=== PATIENT | male | born 1940 | race Caucasian/White ===

== ENCOUNTER 2023-02-08 16:45 | Observation (INO) | payer MEDICARE ==
[2023-02-08 17:37] LABS: Basophils # (A) 0.1 k/uL (0-0.2); Basophils % (A) 0 %; Eosinophils # (A) 0.1 k/uL (0-0.7); Eosinophils % (A) 1 %; HCT 41.6 % (39.0-53.0); HGB 14.5 gm/dL (13.0-17.5); Lymphocytes # (A) 1.6 k/uL (1.0-4.8); Lymphocytes % (A) 13 %; MCH 29.4 pg (25.0-35.0); Mean Platelet Volume 8.2; Monocytes % (A) 9 %; Neutrophils # (A) 9.3 k/uL (1.3-7.7); Neutrophils % (A) 76 %; Platelet Count 335 k/uL (150-450); RBC 4.95 m/uL (4.30-5.90); RDW 15.7 % (11.5-15.5); WBC 12.2 k/uL (3.8-10.6)
--- NOTE | 2023-02-08 17:38 | ED ---
Arrhythmia/Palpitations HPI - General Chief Complaint: Arrhythmia/Palpitations Stated Complaint: tachycardia Time Seen by Provider: 02/08/23 16:53 Source: patient, EMS Mode of arrival: EMS - History of Present Illness Initial Comments: 82-year-old male who presents to the emergency department for [place]. He is currently there for rehab and was admitted on the . It was reported that the patient had a presyncopal sensation. Vitals were obtained and the patient had an elevated heart rate of 180. EMS was called and found the patient to be in SVT. Obtain IV access however before medications were pushed, the patient converted on his own. He has no history of this. Recently had full cardiac workup for orthostatic hypotension at [facility]. Denies any previous cardiac history. States that he felt short of breath with tunnel vision however did not have any chest pain or palpitations. No current symptoms at this time. No other alleviating, precipitating or modifying factors - Related Data Home Medications Medication Instructions Recorded Confirmed Albuterol Inhaler [Ventolin Hfa 2 puff INHALATION RT-QID PRN 02/08/23 02/08/23 Inhaler] Ascorbic Acid [Vitamin C] 1,000 mg PO DAILY@119902/08/23 02/08/23 Aspirin EC [Ecotrin Low Dose] 81 mg PO DAILY@79902/08/23 02/08/23 Bromfenac Sodium [Prolensa Ophth 1 drop RIGHT EYE DAILY@79902/08/23 02/08/23 Soln] Cholecalciferol [Vitamin D3 (25 25 mcg PO DAILY@119902/08/23 02/08/23 Mcg = 1000 Iu)] Cyanocobalamin (Vitamin B-12) 1,000 mcg PO DAILY@119902/08/23 02/08/23 [Vitamin B-12] Fluticasone/Umeclidin/Vilanter 1 puff INHALATION RT-DAILY@79902/08/23 02/08/23 [Trelegy Ellipta 200-62.5-25] Ipratropium-Albuterol Nebulize 3 ml INHALATION RT-Q6H PRN 02/08/23 02/08/23 [Duoneb 0.5 mg-3 mg/3 ml Soln] Loteprednol Etabonate [Inveltys] 1 drop LEFT EYE DAILY@0800 02/08/23 02/08/23 Loteprednol Etabonate [Inveltys] 1 drop RIGHT EYE BID@0800,1700 02/08/23 02/08/23 Magnesium Chloride [Mag64] 64 mg PO DAILY@0800 02/08/23 02/08/23 Magnesium Hydroxide [Milk of 7,200 mg PO DAILY PRN 02/08/23 02/08/23 Magnesia Concentrate] Melatonin 3 mg PO HS PRN 02/08/23 02/08/23 Menthol-Zinc Oxide Oint 1 applic TOPICAL TID 02/08/23 02/08/23 [Calmoseptine Ointment] Na Phos,M-B/Na Phos,Di-Ba [Fleet 133 ml RECTAL DAILY PRN 02/08/23 02/08/23 Adult] Nystatin 100,000Unit/gm Cream 1 applic TOPICAL BID PRN 02/08/23 02/08/23 [Mycostatin Cream] Sennosides [Senokot] 17.2 mg PO BID@0800,1700 02/08/23 02/08/23 Torsemide [Demadex] 20 mg PO DAILY@0800 02/08/23 02/08/23 bisacodyL [Dulcolax] 10 mg RECTAL DAILY PRN 02/08/23 02/08/23 carvediloL [Coreg] 6.25 mg PO BID@0800,1700 02/08/23 02/08/23 Allergies Allergy/AdvReac Type Severity Reaction Status Date / Time No Known Allergies Allergy Verified 02/08/23 17:33 Review of Systems ROS Statement: Those systems with pertinent positive or pertinent negative responses have been documented in the HPI. ROS Other: All systems not noted in ROS Statement are negative. Past Medical History Past Medical History: COPD Smoking Status: Former smoker General Exam General appearance: alert, in no apparent distress Head exam: Present: atraumatic, normocephalic, normal inspection Eye exam: Present: normal appearance, PERRL, EOMI. Absent: scleral icterus, conjunctival injection, periorbital swelling ENT exam: Present: normal exam, mucous membranes moist Neck exam: Present: normal inspection. Absent: tenderness, meningismus, lymphadenopathy Respiratory exam: Present: normal lung sounds bilaterally. Absent: respiratory distress, wheezes, rales, rhonchi, stridor Cardiovascular Exam: Present: regular rate, normal rhythm, normal heart sounds. Absent: systolic murmur, diastolic murmur, rubs, gallop, clicks GI/Abdominal exam: Present: soft, normal bowel sounds. Absent: distended, tenderness, guarding, rebound, rigid Extremities exam: Present: normal inspection, full ROM, normal capillary refill. Absent: tenderness, pedal edema, joint swelling, calf tenderness Back exam: Present: normal inspection Neurological exam: Present: alert, oriented X3, CN II-XII intact Psychiatric exam: Present: normal affect, normal mood Skin exam: Present: warm, dry, intact, normal color. Absent: rash Course Vital Signs 02/08/23 02/08/23 16:49 18:02 Temperature 97.7 F 97.5 F L Pulse Rate 103 H 97 Respiratory 18 19 Rate Blood Pressure 125/87 125/87 O2 Sat by Pulse 99 95 Oximetry Medical Decision Making - Medical Decision Making Was pt. sent in by a medical professional or institution (, PA, SILK BRUSHER, urgent care, hospital, or alf...) When possible be specific @ -[facility] Did you speak to anyone other than the patient for history (EMS, parent, family, police, friend...)? What history was obtained from this source @ -EMS Did you review nursing and triage notes (agree or disagree)? Why? @ -I reviewed and agree with nursing and triage notes Were old charts reviewed (outside hosp., previous admission, EMS record, old EKG, old radiological studies, urgent care reports/EKG's, alf records)? Report findings @ -I reviewed the patient's paperwork from his F Differential Diagnosis (chest pain, altered mental status, abdominal pain women, abdominal pain men, vaginal bleeding, weakness, fever, dyspnea, syncope, headache, dizziness, GI bleed, back pain, seizure, CVA, palpatations, mental health, musculoskeletal)? @ -Differential Palpitations Ventricular arrhythmias, atrial arrhythmias, myocardial infarction, anemia, thyrotoxicosis, electrolyte imbalance, hypokalemia, pulmonary embolism, pulmonary disease, drugs, alcohol, anxiety, stress.... This is not meant to be an all-inclusive list. EKG interpreted by me (3pts min.). @ -Yes and demonstrates sinus rhythm with a rate of 104. CA interval 175. QRS 88. QTC of 394. No acute ST segment elevation or depression X-rays interpreted by me (1pt min.). @ -Yes and demonstrates bilateral pulmonary haziness CT interpreted by me (1pt min.). @ -None done U/S interpreted by me (1pt. min.). @ -None done What testing was considered but not performed or refused? (CT, X-rays, U/S, labs)? Why? @ -None What meds were considered but not given or refused? Why? @ -None Did you discuss the management of the patient with other professionals (pro fessionals i.e. , PA, SILK BRUSHER, lab, RT, psych nurse, professor of social work, hyster machine operator, teacher, chief green officer, lining caser)? Give summary @ -Spoke with Lexus from [facility] Was smoking cessation discussed for >3mins.? @ -No Was critical care preformed (if so, how long)? @ -No Were there social determinants of health that impacted care today? How? (Homelessness, low income, unemployed, alcoholism, drug addiction, transportation, low edu. Level, literacy, decrease access to med. care, group home, rehab)? @ -Patient is coming from rehab Was there de-escalation of care discussed even if they declined (Discuss DNR or withdrawal of care, Hospice)? DNR status @ -No What co-morbidities impacted this encounter? (DM, HTN, Smoking, COPD, CAD, Cancer, CVA, ARF, Chemo, Hep., AIDS, mental health diagnosis, sleep apnea, morbid obesity)? @ -Orthostatic hypotension Was patient admitted / discharged? Hospital course, mention meds given and route, prescriptions, significant lab abnormalities, going to OR and other pertinent info. @ -Upon arrival patient was placed into room 6. A thorough history and physical exam was performed. 12-lead EKG was obtained. Patient is tachycardic however is not in SVT. Laboratory studies were conducted and reviewed. Chest x-ray was performed. Recommended admission due to new onset SVT for which the patient was agreeable. Spoke with Lexus from [facility] who agreed to admit the patient Undiagnosed new problem with uncertain prognosis? @ - Yes Drug Therapy requiring intensive monitoring for toxicity (Heparin, Nitro, Insulin, Cardizem)? @ -No Were any procedures done? @ -No Diagnosis/symptom? @ -Acute new onset SVT Acute, or Chronic, or Acute on Chronic? @ -Acute Uncomplicated (without systemic symptoms) or Complicated (systemic symptoms)? @ -Complicated Side effects of treatment? @ -No Exacerbation, Progression, or Severe Exacerbation? @ -No Poses a threat to life or bodily function? How? (Chest pain, USA, MD, pneumonia, PE, COPD, DKA, ARF, appy, cholecystitis, CVA, Diverticulitis, Homicidal, Suicidal, threat to staff... and all critical care pts) @ -No - Lab Data Result diagrams: 02/08/23 17:00 02/08/23 17:00 Lab Results 02/08/23 02/08/23 02/08/23 Range/Units 17:00 17:00 17:00 WBC 12.2 H (3.8-10.6) k/uL RBC 4.95 (4.30-5.90) m/uL Hgb 14.5 (13.0-17.5) gm/dL Hct 41.6 (39.0-53.0) % MCV 84.0 (80.0-100.0) fL MCH 29.4 (25.0-35.0) pg MCHC 35.0 (31.0-37.0) g/dL RDW 15.7 H (11.5-15.5) % Plt Count 335 (150-450) k/uL MPV 8.2 Neutrophils % 76 % Lymphocytes % 13 % Monocytes % 9 % Eosinophils % 1 % Basophils % 0 % Neutrophils # 9.3 H (1.3-7.7) k/uL Lymphocytes # 1.6 (1.0-4.8) k/uL Monocytes # 1.0 (0-1.0) k/uL Eosinophils # 0.1 (0-0.7) k/uL Basophils # 0.1 (0-0.2) k/uL PT 10.8 (9.0-12.0) sec INR 1.0 (<1.2) APTT 23.4 (22.0-30.0) sec Sodium 130 L (137-145) mmol/L Potassium 4.1 (3.5-5.1) mmol/L Chloride 94 L (98-107) mmol/L Carbon Dioxide 25 (22-30) mmol/L Anion Gap 11 mmol/L BUN 37 H (9-20) mg/dL Creatinine 1.59 H (0.66-1.25) mg/dL Est GFR (CKD-EPI)AfAm 47 (>60 ml/min/1.73 sqM) Est GFR (CKD-EPI)NonAf 41 (>60 ml/min/1.73 sqM) Glucose 113 H (74-99) mg/dL Calcium 9.7 (8.4-10.2) mg/dL Magnesium 2.1 (1.6-2.3) mg/dL Total Bilirubin 1.6 H (0.2-1.3) mg/dL AST 59 (17-59) U/L ALT 62 H (4-49) U/L Alkaline Phosphatase 109 (38-126) U/L Troponin I (0.000-0.034) ng/mL Total Protein 6.4 (6.3-8.2) g/dL Albumin 3.4 L (3.5-5.0) g/dL TSH 2.300 (0.465-4.680) mIU/L 02/08/23 Range/Units 17:00 WBC (3.8-10.6) k/uL RBC (4.30-5.90) m/uL Hgb (13.0-17.5) gm/dL Hct (39.0-53.0) % MCV (80.0-100.0) fL MCH (25.0-35.0) pg MCHC (31.0-37.0) g/dL RDW (11.5-15.5) % Plt Count (150-450) k/uL MPV Neutrophils % % Lymphocytes % % Monocytes % % Eosinophils % % Basophils % % Neutrophils # (1.3-7.7) k/uL Lymphocytes # (1.0-4.8) k/uL Monocytes # (0-1.0) k/uL Eosinophils # (0-0.7) k/uL Basophils # (0-0.2) k/uL PT (9.0-12.0) sec INR (<1.2) APTT (22.0-30.0) sec Sodium (137-145) mmol/L Potassium (3.5-5.1) mmol/L Chloride (98-107) mmol/L Carbon Dioxide (22-30) mmol/L Anion Gap mmol/L BUN (9-20) mg/dL Creatinine (0.66-1.25) mg/dL Est GFR (CKD-EPI)AfAm (>60 ml/min/1.73 sqM) Est GFR (CKD-EPI)NonAf (>60 ml/min/1.73 sqM) Glucose (74-99) mg/dL Calcium (8.4-10.2) mg/dL Magnesium (1.6-2.3) mg/dL Total Bilirubin (0.2-1.3) mg/dL AST (17-59) U/L ALT (4-49) U/L Alkaline Phosphatase (38-126) U/L Troponin I <0.012 (0.000-0.034) ng/mL Total Protein (6.3-8.2) g/dL Albumin (3.5-5.0) g/dL TSH (0.465-4.680) mIU/L Disposition Clinical Impression: SVT (supraventricular tachycardia) Disposition: ADMITTED IP TO THIS [facility] Condition: Stable Is patient prescribed a controlled substance at d/c from ED?: No Time of Disposition: 19:16 Decision to Admit Reason: Admit from EC Decision Date: 02/08/23 Decision Time: 19:17
[2023-02-08 17:47] LABS: Partial Thromboplastin Time 23.4 sec (22.0-30.0); Prothrombin Time 10.8 sec (9.0-12.0)
[2023-02-08 17:51] LABS: ALT 62 U/L (4-49); AST 59 U/L (17-59); African American GFR (CKD) 47 (>60 ml/min/1.73 sqM); Albumin 3.4 g/dL (3.5-5.0); Alkaline Phosphatase 109 U/L (38-126); Anion Gap 11 mmol/L; Blood Urea Nitrogen 37 mg/dL (9-20); Calcium 9.7 mg/dL (8.4-10.2); Carbon Dioxide 25 mmol/L (22-30); Chloride 94 mmol/L (98-107); Glucose 113 mg/dL (74-99); Magnesium 2.1 mg/dL (1.6-2.3); Non-African American GFR(CKD) 41 (>60 ml/min/1.73 sqM); Potassium 4.1 mmol/L (3.5-5.1); Sodium 130 mmol/L (137-145); Total Bilirubin 1.6 mg/dL (0.2-1.3); Total Protein 6.4 g/dL (6.3-8.2)
[2023-02-08] MEDS ORDERED: NALOXONE 0.4 MG/ML 1 ML VIAL IV PRN (19:23)
--- NOTE | 2023-02-08 19:34 | XR ---
EXAMINATION: XR chest 2V: 02/08/2023 6:27 PM CLINICAL INDICATION: dysrhythmia TECHNIQUE: Departmental protocol COMPARISON: No prior imaging studies on PACS. FINDINGS: There is ill-defined added homogeneous opacity of the left mid and lower lung zone and right lower porfirio ng zone. These findings are nonspecific and can correlate with a clinical diagnosis of multifocal pne umonia or asymmetric pulmonary edema. The pleural spaces are negative. The cardiac silhouette is not enlarged. The remainder of the mediastinal silhouette is unremarkable. The skeletal structures and soft tissues are negative for acute findings. IMPRESSION: Bilateral pulmonary findings, greater on the left.
[2023-02-09 08:34] LABS: Basophils # (A) 0.1 k/uL (0-0.2); Basophils % (A) 1 %; Eosinophils # (A) 0.1 k/uL (0-0.7); Eosinophils % (A) 1 %; HCT 39.9 % (39.0-53.0); HGB 13.4 gm/dL (13.0-17.5); Lymphocytes # (A) 1.8 k/uL (1.0-4.8); Lymphocytes % (A) 17 %; MCH 29.1 pg (25.0-35.0); MCHC 33.5 g/dL (31.0-37.0); MCV 86.6 fL (80.0-100.0); Monocytes # (A) 0.9 k/uL (0-1.0); Monocytes % (A) 9 %; Neutrophils # (A) 7.5 k/uL (1.3-7.7); Neutrophils % (A) 71 %; Platelet Count 281 k/uL (150-450); RBC 4.61 m/uL (4.30-5.90); RDW 15.9 % (11.5-15.5); WBC 10.7 k/uL (3.8-10.6)
[2023-02-09 09:01] LABS: African American GFR (CKD) 64 (>60 ml/min/1.73 sqM); Anion Gap 8 mmol/L; Blood Urea Nitrogen 37 mg/dL (9-20); Calcium 9.1 mg/dL (8.4-10.2); Carbon Dioxide 25 mmol/L (22-30); Chloride 96 mmol/L (98-107); Glucose 80 mg/dL (74-99); Non-African American GFR(CKD) 55 (>60 ml/min/1.73 sqM); Potassium 4.4 mmol/L (3.5-5.1); Sodium 129 mmol/L (137-145)
[2023-02-09] MEDS: carvediloL 6.25 MG TAB PO SCH ×2 (11:08→17:19)
--- NOTE | 2023-02-09 11:38 | P.CRDCN ---
History of Present Illness History of present illness: HISTORY OF PRESENT ILLNESS: This is a 82-year-old male with a past medical history significant for COPD and hypertension. Patient follows with a media services director out of [facility]. We have been asked to see the patient in consultation for SVT. Patient examined at the bedside in the emergency room. The patient is currently at [facility] for rehab. Apparently the patient had a presyncopal episode. The patient's heart rate was found to be elevated at 180. EMS was called and the patient was found to be in SVT. However the patient converted spontaneously on his own to sinus rhythm. The patient was in sinus mechanism when he arrived to the hospital. However thi s morning, the patient had an episode of SVT. Valsalva maneuver was attempted without success. A second modified Valsalva maneuver was attempted and patient converted to sinus mechanism. The patient is maintaining sinus mechanism at the time of examination. He denies any chest pain or pressure. He currently denies shortness of breath. * EKG reveals SVT. Repeat EKG reveals sinus mechanism with diffuse ST depression. T-wave inversions in lead 3 and V132 * Laboratory data: WBC 10.7. Hemoglobin 13.4. Platelet count 281. Sodium 129. Potassium 4.4. BUN 37. Creatinine 1.24. Troponin negative 3. TSH 2.300. * Current home cardiac medications include carvedilol 6.25 mg twice a day, Lisa dex 20 mg daily, and aspirin 81 mg daily REVIEW OF SYSTEMS: At the time of my exam: CONSTITUTIONAL: Denies fever or chills. HEENT: Denies blurred vision, vision changes, or eye pain. Denies hemoptysis CARDIOVASCULAR: Denies chest pain. Denies orthopnea. Denies PND. Denies palpitations RESPIRATORY: Denies shortness of breath. GASTROINTESTINAL: Denies abdominal pain. Denies nausea or vomiting. HEMATOLOGIC: Denies bleeding disorders. GENITOURINARY: Denies any blood in urine. SKIN: Denies pruitis. Denies rash. PHYSICAL EXAM: VITAL SIGNS: Reviewed. GENERAL: Well-developed in no acute distress. HEENT: Head is normocephalic. Pupils are equal, round. Sclerae anicteric. Mucous membranes of the mouth are moist. Neck supple. No JVD or thyromegaly LUNGS: Respirations even and unlabored. Lungs essentially clear to auscultation bilaterally. HEART: Regular rate and rhythm. S1 and S2 heard. Systolic murmur noted. ABDOMEN: Soft. Nondistended. Nontender. EXTREMITIES: Normal range of motion. No clubbing or cyanosis. Peripheral pulses intact. No lower extremity edema NEUROLOGIC: Awake and alert. Oriented x 3. ASSESSMENT: Presyncope Paroxysmal SVT, with conversion to sinus mechanism with Valsalva maneuvers History of hypertension History of COPD Acute kidney injury, improving PLAN: Obtain 2D echo to assess cardiac structure and function Resume aspirin and Coreg Add verapamil 80 mg twice a day Hold Lasix secondary to EDGARDO on admission Continue telemetry monitoring Further recommendations pending patient course Nurse practitioner note has been reviewed by physician. Signing provider agrees with the documented findings, assessment, and plan of care. Past Medical History Past Medical History: COPD Smoking Status: Former smoker Medications and Allergies Home Medications Medication Instructions Recorded Confirmed Type Albuterol Inhaler [Ventolin Hfa 2 puff INHALATION RT-QID PRN 02/08/23 02/08/23 History Inhaler] Ascorbic Acid [Vitamin C] 1,000 mg PO DAILY@119902/08/23 02/08/23 History Aspirin EC [Ecotrin Low Dose] 81 mg PO DAILY@79902/08/23 02/08/23 History Bromfenac Sodium [Prolensa Ophth 1 drop RIGHT EYE DAILY@79902/08/23 02/08/23 History Soln] Cholecalciferol [Vitamin D3 (25 25 mcg PO DAILY@119902/08/23 02/08/23 History Mcg = 1000 Iu)] Cyanocobalamin (Vitamin B-12) 1,000 mcg PO DAILY@119902/08/23 02/08/23 History [Vitamin B-12] Fluticasone/Umeclidin/Vilanter 1 puff INHALATION RT-DAILY@79902/08/23 02/08/23 History [Trelegy Ellipta 200-62.5-25] Ipratropium-Albuterol Nebulize 3 ml INHALATION RT-Q6H PRN 02/08/23 02/08/23 History [Duoneb 0.5 mg-3 mg/3 ml Soln] Loteprednol Etabonate [Inveltys] 1 drop LEFT EYE DAILY@79902/08/23 02/08/23 History Loteprednol Etabonate [Inveltys] 1 drop RIGHT EYE BID@0800,1700 02/08/23 02/08/23 History Magnesium Chloride [Mag64] 64 mg PO DAILY@0800 02/08/23 02/08/23 History Magnesium Hydroxide [Milk of 7,200 mg PO DAILY PRN 02/08/23 02/08/23 History Magnesia Concentrate] Melatonin 3 mg PO HS PRN 02/08/23 02/08/23 History Menthol-Zinc Oxide Oint 1 applic TOPICAL TID 02/08/23 02/08/23 History [Calmoseptine Ointment] Na Phos,M-B/Na Phos,Di-Ba [Fleet 133 ml RECTAL DAILY PRN 02/08/23 02/08/23 History Adult] Nystatin 100,000Unit/gm Cream 1 applic TOPICAL BID PRN 02/08/23 02/08/23 History [Mycostatin Cream] Sennosides [Senokot] 17.2 mg PO BID@0800,1700 02/08/23 02/08/23 History Torsemide [Demadex] 20 mg PO DAILY@0800 02/08/23 02/08/23 History bisacodyL [Dulcolax] 10 mg RECTAL DAILY PRN 02/08/23 02/08/23 History carvediloL [Coreg] 6.25 mg PO BID@0800,1700 02/08/23 02/08/23 History Allergies Allergy/AdvReac Type Severity Reaction Status Date / Time No Known Allergies Allergy Verified 02/08/23 17:33 Physical Exam Vitals: Vital Signs Temp Pulse Resp BP Pulse Ox 02/09/23 11:05 97.2 F L 82 16 141/71 98 02/09/23 08:45 97 F L 65 16 128/76 94 L 02/09/23 03:54 58 L 20 148/69 97 02/09/23 00:39 72 16 105/53 98 02/08/23 23:18 71 22 122/69 95 02/08/23 21:09 66 22 125/87 96 02/08/23 18:02 97.5 F L 97 19 125/87 95 02/08/23 16:49 97.7 F 103 H 18 125/87 99 Intake and Output 07/02/09/23 02/09/23 22:59 06:59 14:59 Other: Weight 90 kg Results 02/09/23 08:01 02/09/23 08:01 Cardiac Enzymes 02/08/23 02/08/23 02/08/23 Range/Units 17:00 17:00 20:53 AST 59 (17-59) U/L Troponin I <0.012 0.013 (0.000-0.034) ng/mL 02/09/23 Range/Units 00:00 AST (17-59) U/L Troponin I 0.018 (0.000-0.034) ng/mL Coagulation 02/08/23 Range/Units 17:00 PT 10.8 (9.0-12.0) sec APTT 23.4 (22.0-30.0) sec CBC 02/08/23 02/09/23 Range/Units 17:00 08:01 WBC 12.2 H 10.7 H (3.8-10.6) k/uL RBC 4.95 4.61 (4.30-5.90) m/uL Hgb 14.5 13.4 (13.0-17.5) gm/dL Hct 41.6 39.9 (39.0-53.0) % Plt Count 335 281 (150-450) k/uL Comprehensive Metabolic Panel 02/08/23 02/09/23 Range/Units 17:00 08:01 Sodium 130 L 129 L (137-145) mmol/L Potassium 4.1 4.4 (3.5-5.1) mmol/L Chloride 94 L 96 L (98-107) mmol/L Carbon Dioxide 25 25 (22-30) mmol/L BUN 37 H 37 H (9-20) mg/dL Creatinine 1.59 H 1.24 (0.66-1.25) mg/dL Glucose 113 H 80 (74-99) mg/dL Calcium 9.7 9.1 (8.4-10.2) mg/dL AST 59 (17-59) U/L ALT 62 H (4-49) U/L Alkaline Phosphatase 109 (38-126) U/L Total Protein 6.4 (6.3-8.2) g/dL Albumin 3.4 L (3.5-5.0) g/dL Current Medications Generic Name Dose Route Start Last Admin Trade Name Rajivq PRN Reason Stop Dose Admin Carvedilol 6.25 mg 02/09/23 10:31 02/09/23 11:08 Carvedilol 6.25 Mg Tab PO 6.25 mg BID@0800,1700 NEELA Administration Naloxone HCl 0.2 mg 02/08/23 19:23 Naloxone 0.4 Mg/Ml 1 Ml Vial IV Q2M PRN Opioid Reversal Intake and Output 02/08/23 02/09/23 02/09/23 22:59 06:59 14:59 Other: Weight 90 kg 02/09/23 08:01 02/09/23 08:01
[2023-02-09] MEDS ORDERED: ALBUTEROL NEBULIZED 2.5 MG/3 ML INHALATION PRN (12:42)
[2023-02-09] MEDS ORDERED: NYSTATIN 100,000UNIT/GM CREAM 30 GM TUBE TOPICAL PRN (12:42)
[2023-02-09] MEDS ORDERED: bisacodyL 10 MG SUPP RECTAL PRN (12:42)
[2023-02-09] MEDS ORDERED: MAGNESIUM HYDROXIDE 2,400 MG/30 ML CUP PO PRN (12:42)
[2023-02-09] MEDS ORDERED: MELATONIN 3 MG TABLET PO PRN (12:42)
--- NOTE | 2023-02-09 12:47 | P.HPIM ---
History of Present Illness 82-year-old male is admitted the for episodes of SVT initially resolve spontaneously subsequently started again which resolved again spontaneously. Patient is presently on verapamil oral and metoprolol. Patient is clinically dehydrated as well as his serum sodium is low at 129 creatinine is 1.59 on admission improved to 1.24 baseline creatinine is not available at this time. Echocardiogram is not available either patient is on torsemide as outpatient. Patient is presently sinus rhythm patient does have leukocytosis without any evidence of infection. Patient is a retirement resident unable to obtain much of the history REVIEW OF SYSTEMS: CONSTITUTIONAL: No fever, no malaise, no fatigue. HEENT: No recent visual problems or hearing problems. Denied any sore throat. CARDIOVASCULAR: No chest pain, orthopnea, PND, no palpitations, no syncope. PULMONARY: No shortness of breath, no cough, no hemoptysis. GASTROINTESTINAL: No diarrhea, no nausea, no vomiting, no abdominal pain. NEUROLOGICAL: No headaches, no weakness, no numbness. HEMATOLOGICAL: Denies any bleeding or petechiae. GENITOURINARY: Denies any burning micturition, frequency, or urgency. MUSCULOSKELETAL/RHEUMATOLOGICAL: Denies any joint pain, swelling, or any muscle pain. ENDOCRINE: Denies any polyuria or polydipsia. The rest of the 14-point review of systems is negative. PHYSICAL EXAMINATION: GENERAL: The patient is alert and oriented x3, not in any acute distress. Well developed, well nourished. HEENT: Pupils are round and equally reacting to light. EOMI. No scleral icterus. No conjunctival pallor. Normocephalic, atraumatic. No pharyngeal erythema. No thyromegaly. CARDIOVASCULAR: S1 and S2 present. No murmurs, rubs, or gallops. PULMONARY: Chest is clear to auscultation, no wheezing or crackles. ABDOMEN: Soft, nontender, nondistended, normoactive bowel sounds. No palpable organomegaly. MUSCULOSKELETAL: No joint swelling or deformity. EXTREMITIES: No cyanosis, clubbing, or pedal edema. NEUROLOGICAL: Does have significant generalized weakness appears to be bedbound SKIN: Refer to nursing documentation for description of sacral decubitus ulcer Assessment and plan -Presyncope, SVT: Improved with Valsalva. Echocardiogram will be obtained. Patient is Being continued on beta sandy and verapamil was ordered -Hypovolemic hyponatremia secondary to diuretics which will be held the patient was started on gentle hydration patient's rehydration may have precipitated SVT. -History of COPD without any acute exacerbation [place]-acute renal failure secondary to diuretics and intravascular depletion, dehydration. -Hypertension DVT prophylaxis: Subcutaneous heparin Past Medical History Past Medical History: COPD Smoking Status: Former smoker Medications and Allergies Home Medications Medication Instructions Recorded Confirmed Type Albuterol Inhaler [Ventolin Hfa 2 puff INHALATION RT-QID PRN 02/08/23 02/08/23 History Inhaler] Ascorbic Acid [Vitamin C] 1,000 mg PO DAILY@119902/08/23 02/08/23 History Aspirin EC [Ecotrin Low Dose] 81 mg PO DAILY@0802/08/23 02/08/23 History Bromfenac Sodium [Prolensa Ophth 1 drop RIGHT EYE DAILY@79902/08/23 02/08/23 History Soln] Cholecalciferol [Vitamin D3 (25 25 mcg PO DAILY@119902/08/23 02/08/23 History Mcg = 1000 Iu)] Cyanocobalamin (Vitamin B-12) 1,000 mcg PO DAILY@119902/08/23 02/08/23 History [Vitamin B-12] Fluticasone/Umeclidin/Vilanter 1 puff INHALATION RT-DAILY@79902/08/23 02/08/23 History [Trelegy Ellipta 200-62.5-25] Ipratropium-Albuterol Nebulize 3 ml INHALATION RT-Q6H PRN 02/08/23 02/08/23 History [Duoneb 0.5 mg-3 mg/3 ml Soln] Loteprednol Etabonate [Inveltys] 1 drop LEFT EYE DAILY@0802/08/23 02/08/23 History Loteprednol Etabonate [Inveltys] 1 drop RIGHT EYE BID@0800,1700 02/08/23 02/08/23 History Magnesium Chloride [Mag64] 64 mg PO DAILY@0802/08/23 02/08/23 History Magnesium Hydroxide [Milk of 7,200 mg PO DAILY PRN 02/08/23 02/08/23 History Magnesia Concentrate] Melatonin 3 mg PO HS PRN 02/08/23 02/08/23 History Menthol-Zinc Oxide Oint 1 applic TOPICAL TID 02/08/23 02/08/23 History [Calmoseptine Ointment] Na Phos,M-B/Na Phos,Di-Ba [Fleet 133 ml RECTAL DAILY PRN 02/08/23 02/08/23 History Adult] Nystatin 100,000Unit/gm Cream 1 applic TOPICAL BID PRN 02/08/23 02/08/23 History [Mycostatin Cream] Sennosides [Senokot] 17.2 mg PO BID@0800,1700 02/08/23 02/08/23 History Torsemide [Demadex] 20 mg PO DAILY@0800 02/08/23 02/08/23 History bisacodyL [Dulcolax] 10 mg RECTAL DAILY PRN 02/08/23 02/08/23 History carvediloL [Coreg] 6.25 mg PO BID@0800,1700 02/08/23 02/08/23 History Allergies Allergy/AdvReac Type Severity Reaction Status Date / Time No Known Allergies Allergy Verified 02/08/23 17:33 Physical Exam Vitals: Vital Signs Temp Pulse Resp BP Pulse Ox 02/09/23 11:05 97.2 F L 82 16 141/71 98 02/09/23 10:30 81 20 133/87 98 02/09/23 10:00 87 14 135/80 97 02/09/23 09:30 75 15 156/80 98 02/09/23 09:20 80 19 179/93 97 02/09/23 09:15 97 23 123/88 98 02/09/23 09:10 184 H 24 119/84 99 02/09/23 09:05 67 19 144/68 92 L 02/09/23 08:45 97 F L 65 16 128/76 94 L 02/09/23 03:54 58 L 20 148/69 97 02/09/23 00:39 72 16 105/53 98 02/08/23 23:18 71 22 122/69 95 02/08/23 21:09 66 22 125/87 96 02/08/23 18:02 97.5 F L 97 19 125/87 95 02/08/23 16:49 97.7 F 103 H 18 125/87 99 Intake and Output 02/08/23 02/09/23 02/09/23 22:59 06:59 14:59 Other: Weight 90 kg Results CBC & Chem 7: 02/09/23 08:01 02/09/23 08:01 Labs: Abnormal Lab Results - Last 24 Hours (Table) 02/08/23 02/08/23 02/09/23 Range/Units 17:00 17:00 08:01 WBC 12.2 H 10.7 H (3.8-10.6) k/uL RDW 15.7 H 15.9 H (11.5-15.5) % Neutrophils # 9.3 H (1.3-7.7) k/uL Sodium 130 L (137-145) mmol/L Chloride 94 L (98-107) mmol/L BUN 37 H (9-20) mg/dL Creatinine 1.59 H (0.66-1.25) mg/dL Glucose 113 H (74-99) mg/dL Total Bilirubin 1.6 H (0.2-1.3) mg/dL ALT 62 H (4-49) U/L Albumin 3.4 L (3.5-5.0) g/dL 02/09/23 Range/Units 08:01 WBC (3.8-10.6) k/uL RDW (11.5-15.5) % Neutrophils # (1.3-7.7) k/uL Sodium 129 L (137-145) mmol/L Chloride 96 L (98-107) mmol/L BUN 37 H (9-20) mg/dL Creatinine (0.66-1.25) mg/dL Glucose (74-99) mg/dL Total Bilirubin (0.2-1.3) mg/dL ALT (4-49) U/L Albumin (3.5-5.0) g/dL
[2023-02-09] MEDS: VERAPAMIL 80 MG TAB PO SCH ×2 (17:12→20:47)
[2023-02-09] MEDS: HEPARIN SODIUM,PORCINE/PF 5,000 UNIT/0.5 ML SYRINGE SQ SCH (17:15)
[2023-02-09] MEDS: MENTHOL-ZINC OXIDE OINT 113 GM TUBE TOPICAL SCH ×2 (17:16→20:47)
[2023-02-09] MEDS: SENNOSIDES 8.6 MG TAB PO SCH (17:16)
[2023-02-09] MEDS: SODIUM CHLORIDE 0.9% 1,000 ML IV SCH (17:20)
--- NOTE | 2023-02-09 17:20 | CA ---
Transthoracic Echo Report Name: Gil Garcia Age: 82 Gender: M : 1940 Exam Date: 02/09/2023 11:45 Exam Location: [facility] Ht (in): 65 Wt (lb): 198 Ordering Physician: Leydi Meyers Attending/Referring Phys: [id number], Mira Title Inspector Isrrael Germain Procedure CPT: Indications: LV function, SVT Cardiac Hx: Technical Quality: Technically difficult study Contrast 1: Lumason Total Dose (mL): 5 Contrast 2: Total Dose (mL): MEASUREMENTS (Male / Female) Normal Values 2D ECHO RV Internal Dim ED PLAX 3.3 cm LVOT Diameter 2.4 cm Aortic Root Diameter 3.0 cm LA Systolic Diameter LX 1.8 cm 3.0 - 4.0 / 2.7 - 3.8 cm LV Diastolic Volume MOD BP 31.5 cm??? 67 - 155 / 56 - 104 cm??? LV Systolic Volume MOD BP 14.0 cm??? 22 - 58 / 19 - 49 cm??? LV Ejection Fraction MOD BP 55.7 % >= 55 % LV Cardiac Index MOD BP 656.1 cm???/min???m??? LV Diastolic Volume MOD 4C 35.3 cm??? LV Systolic Volume MOD 4C 13.9 cm??? LV Ejection Fraction MOD 4C 60.5 % LV Cardiac Index MOD 4C 796.8 cm???/min???m??? LV Diastolic Length 4C 6.1 cm LV Systolic Length 4C 5.0 cm LV Diastolic Volume MOD 2C 28.0 cm??? LV Systolic Volume MOD 2C 13.8 cm??? LV Ejection Fraction MOD 2C 50.7 % LV Cardiac Index MOD 2C 529.2 cm???/min???m??? LV Diastolic Length 2C 6.2 cm LV Systolic Length 2C 5.3 cm LA Volume 27.3 cm??? 18 - 58 / 22 - 52 cm??? DOPPLER AV Peak Velocity 105.1 cm/s AV Peak Gradient 4.4 mmHg LVOT Peak Velocity 88.9 cm/s LVOT Peak Gradient 3.2 mmHg AV Area Cont Eq pk 3.7 cm??? MV Peak Velocity 80.9 cm/s MV Peak Gradient 2.6 mmHg MV Mean Velocity 40.3 cm/s MV Mean Gradient 0.8 mmHg MV Velocity Time Integral 24.3 cm Mitral E Point Velocity 64.4 cm/s Mitral A Point Velocity 79.2 cm/s Mitral E to A Ratio 0.8 MV Deceleration Time 263.7 ms MV E' Velocity 4.7 cm/s Mitral E to MV E' Ratio 13.8 TR Peak Velocity 124.1 cm/s TR Peak Gradient 6.2 mmHg Right Ventricular Systolic Press 11.2 mmHg PV Peak Velocity 93.1 cm/s PV Peak Gradient 3.5 mmHg FINDINGS Left Ventricle Normal LV size and wall hickness. left ventricular ejection fraction is estimated at 55-60 %.normal left ventricular wall motion. Right Ventricle Normal right ventricular size. Right Atrium Normal right atrial size. Left Atrium Normal left atrial size. Mitral Valve Structurally normal mitral valve. No mitral regurgitation. No mitral stenosis. Aortic Valve Aortic valve not well visualized. Tricuspid Valve Tricuspid valve not well visualized. Trace TR. Pulmonic Valve Pulmonic valve not well visualized. No pulmonic regurgitation. Pericardium Normal pericardium. Aorta Normal size aortic root and proximal ascending aorta. CONCLUSIONS Technically difficult study. Lumason ECHO contrast used for improved visualization of the endocardial borders (inadequate visualization of two or more contiguous segments). Normal left ventricle size and systolic function Limited Doppler study with no significant abnormalities Previewed by: Dr. Krista Kent MD (Electronically Signed) Final Date: 09 February 2023 17:20
[2023-02-10] MEDS: HEPARIN SODIUM,PORCINE/PF 5,000 UNIT/0.5 ML SYRINGE SQ SCH ×2 (00:13→08:27)
[2023-02-10] MEDS: SODIUM CHLORIDE 0.9% 1,000 ML IV SCH (02:07)
[2023-02-10 07:35] LABS: African American GFR (CKD) 77 (>60 ml/min/1.73 sqM); Anion Gap 9 mmol/L; Blood Urea Nitrogen 33 mg/dL (9-20); Calcium 8.5 mg/dL (8.4-10.2); Carbon Dioxide 23 mmol/L (22-30); Chloride 100 mmol/L (98-107); Glucose 79 mg/dL (74-99); Magnesium 2.1 mg/dL (1.6-2.3); Non-African American GFR(CKD) 66 (>60 ml/min/1.73 sqM); Potassium 3.5 mmol/L (3.5-5.1); Sodium 132 mmol/L (137-145)
[2023-02-10] MEDS ORDERED: SYMBICORT 160-4.5 MCG INHALER INHALATION SCH (08:00)
[2023-02-10] MEDS ORDERED: ASPIRIN 81 MG PO SCH (08:00)
[2023-02-10] MEDS ORDERED: MAGNESIUM OXIDE 400 MG TAB PO SCH (08:00)
[2023-02-10] MEDS: SENNOSIDES 8.6 MG TAB PO SCH (08:22)
[2023-02-10] MEDS: VERAPAMIL 80 MG TAB PO SCH (08:26)
[2023-02-10] MEDS: carvediloL 6.25 MG TAB PO SCH (08:27)
[2023-02-10] MEDS: MENTHOL-ZINC OXIDE OINT 113 GM TUBE TOPICAL SCH (08:27)
[2023-02-10 08:36] VITALS: RESP 18; TEMP 97.6
[2023-02-10] MEDS: IPRATROPIUM 0.5 MG/2.5 ML NEBU INHALATION SCH ×2 (09:03→12:53)
[2023-02-10] MEDS ORDERED: ASCORBIC ACID 500 MG TAB PO SCH (12:00)
--- NOTE | 2023-02-10 13:13 | P.PN ---
Subjective Progress Note Date: 02/10/23 Subjective: Patient denies having any chest pain or shortness of breath. He denies any palpitations. He has not had any syncopal episodes in last 24 hours. We reviewed his telemetry and he does not have any sustained arrhythmias after additional verapamil. He has significant hearing impairment and due to that history is limited. REVIEW OF SYSTEMS: At the time of my exam: CONSTITUTIONAL: Denies fever or chills. HEENT: Denies blurred vision, vision changes, or eye pain. Denies hemoptysis CARDIOVASCULAR: Denies chest pain. Denies orthopnea. Denies PND. Denies palpitations RESPIRATORY: Denies shortness of breath. GASTROINTESTINAL: Denies abdominal pain. Denies nausea or vomiting. HEMATOLOGIC: Denies bleeding disorders. GENITOURINARY: Denies any blood in urine. SKIN: Denies pruitis. Denies rash. PHYSICAL EXAM: VITAL SIGNS: Reviewed. GENERAL: Well-developed in no acute distress. HEENT: Head is normocephalic. Pupils are equal, round. Sclerae anicteric. Mucous membranes of the mouth are moist. Neck supple. No JVD or thyromegaly LUNGS: Respirations even and unlabored. Lungs essentially clear to auscultation bilaterally. HEART: Regular rate and rhythm. S1 and S2 heard. Systolic murmur noted. ABDOMEN: Soft. Nondistended. Nontender. EXTREMITIES: Normal range of motion. No clubbing or cyanosis. Peripheral pu lses intact. No lower extremity edema NEUROLOGIC: Awake and alert. Oriented x 3. ASSESSMENT: Presyncope Paroxysmal SVT, with conversion to sinus mechanism with Valsalva maneuvers History of hypertension History of COPD Acute kidney injury, improving PLAN: Echo results were reviewed. Patient's LVEF is 55%. Telemetry was reviewed. Patient does not have any further episodes of supraventricular tachycardia or any sustained arrhythmias. He is tolerating the medication off verapamil 80 mg. We will continue aspirin, Coreg and verapamil. Patient is okay to be discharged from cardiac standpoint. Objective - Vital Signs Vital signs: Vital Signs Temp 97.6 F 02/10/23 08:00 Pulse 70 02/10/23 13:06 Resp 18 02/10/23 08:00 BP 131/73 02/10/23 08:00 Pulse Ox 98 02/10/23 08:00 FiO2 Intake & Output 02/09/23 02/10/23 02/10/23 18:59 06:59 18:59 Intake Total 240 110 360 Output Total 750 Balance 240 -640 360 Weight 90 kg Intake: Oral 240 110 360 Output: Urine 750 Other: Voiding Method External Catheter - Labs CBC & Chem 7: 02/09/23 08:01 02/10/23 07:10 Labs: Abnormal Lab Results - Last 24 Hours (Table) 02/10/23 Range/Units 07:10 Sodium 132 L (137-145) mmol/L BUN 33 H (9-20) mg/dL
--- NOTE | 2023-02-10 13:14 | P.DS ---
Providers Date of admission: 02/08/23 19:23 Attending physician: Felix Cedillo Consults: 02/08/23 19:28 Consult Physician Urgent Consulting Provider: [facility] Consult Reason/Comments: new onset svt Do you want consulting provider notified?: Yes Primary care physician: Fernie Cruz [facility] Course: Final Diagnosis -Presyncope, SVT: Improved with valsava maneuver and started on verapamil. -Hypovolemic hyponatremia secondary to diuretics improved -History of COPD without any acute exacerbation -acute renal failure secondary to diuretics and intravascular depletion, dehydration. -Hypertension Full Code Discharge Disposition Patient is stable for discharge back to the [facility] where he was at for rehab. He has been evaluated by cardiology and recommending to follow up with cardiology on discharge. Patient has been started on verapamil. Hospital Course This is an 82-year-old male is admitted for episodes of SVT initially resolve spontaneously subsequently started again which resolved again spontaneously. Patient is presently on verapamil oral and metoprolol. Patient is clinically dehydrated as well as his serum sodium is low at 129 creatinine is 1.59 on admission improved to 1.24 baseline creatinine is not available at this time. Echocardiogram is not available either patient is on torsemide as outpatient. Patient is presently sinus rhythm patient does have leukocytosis without any evidence of infection. Patient does reside at the retirement. He had been evaluated by cardiology and was started on verapamil and heart rate has normalized. The echocardiogram has been completed with normal LV function it was a technically difficult study. Patient was hydrated and his sodium improved to 132 and creatinine is down to 1.06. No chest pain, no shortness of breath noted. His lungs are clear S1 S2 auscultated abdomen is soft and nontender. Focal neurological exam is negative patient has some weakness. He will discharge back to rehab. Please see medication reconciliation for a list of current medications. Thank you for allowing us to participate in the care of this patient. The impression and plan of care has been dictated by Georgie Berger, Nurse Practitioner as directed. Dr. Chevy MD I have performed a history and physical examination and medical decision making of this patient, discussed the same with the dictator, and agree with the dictators assessment and plan as written, documented as a scribe. Based on total visit time, I have performed more than 50% of this visit. Patient Condition at Discharge: Stable Plan - Discharge Summary New Discharge Prescriptions: New Verapamil [Isoptin] 80 mg PO BID #60 tab Continue Melatonin 3 mg PO HS PRN PRN Reason: SLEEP Na Phos,M-B/Na Phos,Di-Ba [Fleet Adult] 133 ml RECTAL DAILY PRN PRN Reason: Constipation Ascorbic Acid [Vitamin C] 1,000 mg PO DAILY@1200 Fluticasone/Umeclidin/Vilanter [Trelegy Ellipta 200-62.5-25] 1 puff INHALATION RT-DAILY@0800 Magnesium Chloride [Mag64] 64 mg PO DAILY@0800 Bromfenac Sodium [Prolensa Ophth Soln] 1 drop RIGHT EYE DAILY@0800 Loteprednol Etabonate [Inveltys] 1 drop LEFT EYE DAILY@0800 Cyanocobalamin (Vitamin B-12) [Vitamin B-12] 1,000 mcg PO DAILY@1200 Cholecalciferol [Vitamin D3 (25 Mcg = 1000 Iu)] 25 mcg PO DAILY@1200 Aspirin EC [Ecotrin Low Dose] 81 mg PO DAILY@0800 Menthol-Zinc Oxide Oint [Calmoseptine Ointment] 1 applic TOPICAL TID Nystatin 100,000Unit/gm Cream [Mycostatin Cream] 1 applic TOPICAL BID PRN PRN Reason: GROIN AND SKIN FOLDS RASH Magnesium Hydroxide [Milk of Magnesia Concentrate] 7,200 mg PO DAILY PRN PRN Reason: Constipation Ipratropium-Albuterol Nebulize [Duoneb 0.5 mg-3 mg/3 ml Soln] 3 ml INHALATION RT-Q6H PRN PRN Reason: Shortness Of Breath bisacodyL [Dulcolax] 10 mg RECTAL DAILY PRN PRN Reason: Constipation Sennosides [Senokot] 17.2 mg PO BID@0800,1700 Albuterol Inhaler [Ventolin Hfa Inhaler] 2 puff INHALATION RT-QID PRN PRN Reason: Shortness Of Breath Loteprednol Etabonate [Inveltys] 1 drop RIGHT EYE BID@0800,1700 carvediloL [Coreg] 6.25 mg PO BID@0800,1700 Discontinued Torsemide [Demadex] 20 mg PO DAILY@0800 Discharge Medication List Albuterol Inhaler [Ventolin Hfa Inhaler] 2 puff INHALATION RT-QID PRN 02/08/23 [History] Ascorbic Acid [Vitamin C] 1,000 mg PO DAILY@119902/08/23 [History] Aspirin EC [Ecotrin Low Dose] 81 mg PO DAILY@0802/08/23 [History] Bromfenac Sodium [Prolensa Ophth Soln] 1 drop RIGHT EYE DAILY@0802/08/23 [History] Cholecalciferol [Vitamin D3 (25 Mcg = 1000 Iu)] 25 mcg PO DAILY@119902/08/23 [History] Cyanocobalamin (Vitamin B-12) [Vitamin B-12] 1,000 mcg PO DAILY@119902/08/23 [History] Fluticasone/Umeclidin/Vilanter [Trelegy Ellipta 200-62.5-25] 1 puff INHALATION RT-DAILY@0802/08/23 [History] Ipratropium-Albuterol Nebulize [Duoneb 0.5 mg-3 mg/3 ml Soln] 3 ml INHALATION RT-Q6H PRN 02/08/23 [History] Loteprednol Etabonate [Inveltys] 1 drop LEFT EYE DAILY@0802/08/23 [History] Loteprednol Etabonate [Inveltys] 1 drop RIGHT EYE BID@0800,1700 02/08/23 [History] Magnesium Chloride [Mag64] 64 mg PO DAILY@0802/08/23 [History] Magnesium Hydroxide [Milk of Magnesia Concentrate] 7,200 mg PO DAILY PRN 02/08/23 [History] Melatonin 3 mg PO HS PRN 02/08/23 [History] Menthol-Zinc Oxide Oint [Calmoseptine Ointment] 1 applic TOPICAL TID 02/08/23 [History] Na Phos,M-B/Na Phos,Di-Ba [Fleet Adult] 133 ml RECTAL DAILY PRN 02/08/23 [History] Nystatin 100,000Unit/gm Cream [Mycostatin Cream] 1 applic TOPICAL BID PRN 02/08/23 [History] Sennosides [Senokot] 17.2 mg PO BID@0800,1700 02/08/23 [History] bisacodyL [Dulcolax] 10 mg RECTAL DAILY PRN 02/08/23 [History] carvediloL [Coreg] 6.25 mg PO BID@0800,1700 02/08/23 [History] Verapamil [Isoptin] 80 mg PO BID #60 tab 02/10/23 [Rx] Follow up Appointment(s)/Referral(s): Krista Kent MD [STAFF PHYSICIAN] - 1 Week Fernie Cruz MD [Primary Care Provider] - 1-2 days Ambulatory/Diagnostic Orders: Basic Metabolic Panel [LAB.AMB] Time Frame: 3 Days, Location: None Selected Discharge Disposition: TRANSFER TO SNF/ECF
[2023-02-10 13:19] VITALS: BP 121/76; PULSE 73
== END 2023-02-10 16:30 ==
LOC: EC 16:45 → 3SCARD 19:23
PROVIDERS: ADMIT Hospitalist; ATTEND Hospitalist
DX: I47.1 Supraventricular tachycardia (principal); E86.1 Hypovolemia; E87.1 Hypo-osmolality and hyponatremia; T50.2X5A Adverse effect of carbonic-anhydrase inhibitors, benzothiadiazides and other diuretics, initial encounter; J44.9 Chronic obstructive pulmonary disease, unspecified; N17.9 Acute kidney failure, unspecified; I10 Essential (primary) hypertension; Z87.891 Personal history of nicotine dependence; E86.0 Dehydration; Z79.82 Long term (current) use of aspirin; Z79.899 Other long term (current) drug therapy
CPT/HCPCS: 96360; 96361 ×2; 99285; 36415; 94640 ×2; 93005; 80053; 80048 ×2; 84443; 83735 ×2; 84484 ×2; 85025 ×2; 85610; 85730; 71046; G0378 ×3; C8929; J1644 ×2; 93306